=== PATIENT | male | born 1950 | race Caucasian/White ===

== ENCOUNTER 2019-04-27 23:09 | Inpatient (IN) | payer MEDICARE, OTHER ==
[~2019-04-27] VITALS: Ht 160 cm; Wt 81.8 kg
[2019-04-27] MEDS ORDERED: HYDR-4077 PO (23:49)
[2019-04-27] MEDS ORDERED: ESOM40CA PO (23:49)
[2019-04-27] MEDS ORDERED: METO-357 PO (23:49)
[2019-04-27] MEDS ORDERED: SITA100T PO (23:49)
[2019-04-27] MEDS ORDERED: QUET25TA PO (23:49)
[2019-04-27] MEDS ORDERED: ATOR80TA PO (23:49)
[2019-04-27] MEDS ORDERED: LORA0.5T PO (23:49)
[2019-04-27] MEDS ORDERED: ASPI-605 PO (23:49)
[2019-04-27] MEDS ORDERED: GLIP10TA11 PO (23:49)
[2019-04-27] MEDS ORDERED: DOXA4TAB3 PO (23:49)
[2019-04-27] MEDS ORDERED: VENL75TA4 PO (23:49)
[2019-04-28] MEDS ORDERED: IV D5/0.45 NACL 1,000 ML IV PRN (00:07)
[2019-04-28] MEDS ORDERED: ZOLPIDEM TARTRATE 5 MG TABLET PO PRN (00:30)
[2019-04-28] MEDS ORDERED: Z GUARD REMEDY 2 OZ OINT TP PRN (00:30)
[2019-04-28] MEDS ORDERED: LORAZEPAM 0.5 MG TABLET PO PRN (00:30)
[2019-04-28] MEDS ORDERED: MAG HYDROX/AL HYDROX/SIMETH 30 ML UDC PO PRN (00:30)
[2019-04-28] MEDS ORDERED: MORPHINE SULFATE INJ 2 MG/ML DISP.SYRIN IV PRN (00:30)
[2019-04-28] MEDS ORDERED: ACETAMINOPHEN 325 MG TABLET PO PRN (00:30)
[2019-04-28] MEDS ORDERED: ONDANSETRON HCL/PF 4 MG/2 ML VIAL IVP PRN (00:30)
[2019-04-28] MEDS ORDERED: HYDROCODONE/APAP 5/325MG 1 EACH TABLET PO PRN (00:30)
[2019-04-28] MEDS ORDERED: MAGNESIUM HYDROXIDE 30 ML UDC PO PRN (00:30)
--- NOTE | 2019-04-28 00:51 | NUR ---
SURGICAL GARMENT ASSEMBLY SUPERVISOR NOTES RECEIVED PT FROM EMT VIA WHEELCHAIR. ON ROOM AIR NO RESPIRATORY DISTRESS NOTED. ON MONITOR SR 62. IV ACCESS RFA AND LFA G20 PATENT AND INTACT. NOTED WITH FACIAL DROOPING, NO UPPER AND LOWER WEAKNESS NOTED. PT REFUSED SKIN CHECK. BED ALARM IS ON. BED IN LOW AND LOCKED POSITION. SIDE RAILS UP X3. CALL LIGHT WITHIN REACH. WILL MONITOR PT CLOSELY.
[2019-04-28] MEDS: BLOOD SUGAR DIAGNOSTIC 1 EACH STRIP IN SCH ×4 (00:53→14:09)
[2019-04-28] MEDS ORDERED: LORAZEPAM 0.5 MG TABLET PO SCH (01:00)
--- NOTE | 2019-04-28 02:47 | NUR ---
FAMILY DAY CARE WORKER NOTES PT COMPLAINING OF CHEST PAIN. GIVEN MORPHINE 1MG, INFORMED CLINICAL PROGRAM COORDINATOR . PER CLINICAL PROGRAM COORDINATOR DR, TROPONIN, EKG, CXR STAT. WILL MONITOR PT CLOSELY.
[2019-04-28] MEDS ORDERED: ASPIRIN 325 MG TABLET PO STA (03:08)
[2019-04-28 03:15] LABS: BASOPHILS # (AUTO) 0.1 /CMM (0.0-0.2); BASOPHILS % (AUTO) 0.8 % (0.0-2.0); EOSINOPHILS % (AUTO) 2.6 % (0.0-6.0); HEMATOCRIT 31 % (39-51); HEMOGLOBIN 10.2 g/dL (13.5-17.5); LYMPHOCYTES # (AUTO) 1.6 /CMM (0.8-4.8); LYMPHOCYTES % (AUTO) 17.6 % (20.0-44.0); MEAN CORPUSCULAR HGB CONC 33 g/dl (31.0-36.0); MEAN CORPUSCULAR VOLUME 96 fL (80-96); MONOCYTES # (AUTO) 0.8 /CMM (0.1-1.30); MONOCYTES % (AUTO) 8.7 % (2.0-12.0); NEUTROPHILS # (AUTO) 6.2 /CMM (1.8-8.9); NEUTROPHILS % (AUTO) 70.3 % (43.0-81.0); PLATELET COUNT (AUTO) 139 /CMM (150-450); RED BLOOD CELL COUNT(AUTO) 3.22 MIL/uL (4.5-6.0); WHITE BLOOD COUNT (AUTO) 8.8 K/uL (4.3-11.0)
--- NOTE | 2019-04-28 03:19 | NUR ---
SENIOR PAYROLL SPECIALIST NOTES RELAYED EKG RESULT TO JOSH DAWKINS PER AIR POLLUTION CONTROL ENGINEER ASPIRIN 325MG X 1. WILL MONITOR PT CLOSELY.
[2019-04-28 03:29] LABS: ALBUMIN 3.2 g/dL (3.4-5.0); BILIRUBIN,TOTAL 0.7 mg/dL (0.2-1.0); CALCIUM, SERUM 7.9 mg/dL (8.5-10.1); CREATININE 1.4 mg/dL (0.6-1.3); MAGNESIUM 1.4 mg/dL (1.8-2.4); PHOSPHORUS 3.4 mg/dL (2.5-4.9); POTASSIUM 4.4 mmol/L (3.5-5.1); TOTAL PROTEIN, SERUM 6.3 g/dL (6.4-8.2)
[2019-04-28 03:39] LABS: THYROID STIMULATING HORMONE 1.405 uIU/mL (0.358-3.74)
--- NOTE | 2019-04-28 03:52 | NUR ---
GLASS INSERTER NOTES PER FINANCE ADMINISTRATOR, D/C D51/2NS. BS 216MG/DL
[2019-04-28 04:00] VITALS: BP 124/74
--- NOTE | 2019-04-28 07:07 | NUR ---
BOAT OAR MAKER NOTES NO ACUTE CHANGES NOTED DURING THE SHIFT. PROVIDED COMFORT AND SAFETY. WILL ENDORSE TO THE AM NURSE FOR CONTINUITY OF CARE.
--- NOTE | 2019-04-28 07:15 | NUR ---
PHARMACY SPECIALIST NOTES PATIENT IN BED, AWAKE A/OX3. SINUS RHYTHM 63. NO SOB OR PAIN NOTED AT THIS TIME. PATIENT IS AMBULATORY WITH ASSIST, BED ALARM ON. BED AT THE LOWEST POSITION LOCKED, CALL LIGHT WITHIN REACH. PATIENT HAS LEFT FOREARM IV PATENT FLUSHED WITH NS WELL.
[2019-04-28] MEDS ORDERED: PANTOPRAZOLE 40 MG TABLET.DR PO SCH (07:30)
[2019-04-28] MEDS ORDERED: VENLAFAXINE 37.5 MG TABLET PO SCH (07:30)
[2019-04-28 08:00] VITALS: BP 122/60
[2019-04-28 08:19] VITALS: BP 122/60
[2019-04-28] MEDS ORDERED: DOXAZOSIN MESYLATE (4 MG) 4 MG TABLET PO SCH (09:00)
[2019-04-28] MEDS ORDERED: ASPIRIN EC 81 MG TABLET.DR PO SCH (09:00)
[2019-04-28] MEDS ORDERED: hydrALAZINE HCL 50 MG TABLET PO SCH (09:00)
[2019-04-28] MEDS ORDERED: METOPROLOL SUCCINATE 50 MG TAB.SR.24H PO SCH (09:00)
[2019-04-28] MEDS ORDERED: glipiZIDE 10 MG TABLET PO SCH (09:00)
[2019-04-28] MEDS ORDERED: ATORVASTATIN 40 MG TABLET PO SCH (09:00)
[2019-04-28] MEDS: Magnesium 1GM/D5W 100ML PREMIX 100 ML IV SCH ×4 (10:45→13:30)
--- NOTE | 2019-04-28 11:00 | NUR ---
OCCUPATIONAL MEDICINE OFFICER NOTES PATIENT IS AWAKE , FINISHED HIS BREAKFAST 100%. DAUGHTER AT BED SIDE. DR Mandy DELEON AWARE OF BLOOD GLUCOSE LEVEL OF 241 AT 0900.
[2019-04-28 12:17] VITALS: BP 130/61
[2019-04-28] MEDS ORDERED: MAGNESIUM OXIDE 400 MG TABLET PO ONE (15:00)
--- NOTE | 2019-04-28 15:01 | NUR ---
AGENCY LEGAL COUNSEL NOTES PT HAS REMOVED HIS IV AND LAST BAG OF IV MAGNESIUM NOT ADMINISTRATED. CALLED PHARMACY AND REQUESTED PO ROUTE FOR THE REMAINING 1 G MAGNESIUM.
[2019-04-28] MEDS ORDERED: QUETIAPINE FUMARATE 25 MG TABLET PO SCH (22:00)
== END 2019-04-28 16:44 | disposition home or self-care (01) | DRG 638 ==
LOC: TELE1 23:15
PROVIDERS: ADMIT Hospitalist; ATTEND Hospitalist
DX: E11.649 Type 2 diabetes mellitus with hypoglycemia without coma (principal); F02.81 Dementia in other diseases classified elsewhere, unspecified severity, with behavioral disturbance; T38.3X5A Adverse effect of insulin and oral hypoglycemic [antidiabetic] drugs, initial encounter; Y92.009 Unspecified place in unspecified non-institutional (private) residence as the place of occurrence of the external cause; G30.9 Alzheimer's disease, unspecified; E83.42 Hypomagnesemia; I25.10 Atherosclerotic heart disease of native coronary artery without angina pectoris; Z86.73 Personal history of transient ischemic attack (TIA), and cerebral infarction without residual deficits; F17.200 Nicotine dependence, unspecified, uncomplicated; Z95.1 Presence of aortocoronary bypass graft; Z83.3 Family history of diabetes mellitus; Z82.49 Family history of ischemic heart disease and other diseases of the circulatory system; Z79.82 Long term (current) use of aspirin; Z79.84 Long term (current) use of oral hypoglycemic drugs; Z79.899 Other long term (current) drug therapy
CPT/HCPCS: 36415; 71045-TC; 80053-TC; 80061-TC; 82962-TC; 83735-TC; 84100-TC; 84443-TC; 84484-TC; 85025-TC; 87081-TC; G0378; J2270; J3475; J3490

== ENCOUNTER 2019-08-24 14:17 | Inpatient (IN) | payer MEDICARE, OTHER ==
[~2019-08-24] VITALS: Ht 172.7 cm; Wt 106.6 kg
[~2019-08-24 14:17] MED LIST: ASPI-605 PO; ATOR80TA PO; DOXA4TAB3 PO; ESOM40CA PO; GLIP10TA11 PO; HYDR-4077 PO; LORA0.5T PO; METO-357 PO; QUET25TA PO; SITA100T PO; VENL75TA4 PO
[2019-08-24] MEDS ORDERED: DOXA8TAB2 PO (14:38)
[2019-08-24] MEDS ORDERED: ASPI-1169 PO (14:38)
[2019-08-24] MEDS ORDERED: GLIM4TAB PO (14:38)
[2019-08-24] MEDS ORDERED: ERGO500040 PO (14:45)
[2019-08-24] MEDS ORDERED: APIX5TAB4 PO (14:45)
[2019-08-24] MEDS ORDERED: APIX5TAB PO (14:45)
[2019-08-24] MEDS ORDERED: BISA-79 PO (14:45)
[2019-08-24] MEDS ORDERED: DOCU100C36 PO (14:45)
[2019-08-24] MEDS ORDERED: Calcium Gluconate 0.465 MEQ/ML VIAL IV ONE (14:46)
[2019-08-24] MEDS ORDERED: ESCI20TA PO (14:52)
[2019-08-24] MEDS ORDERED: NICO-677 TD (14:52)
[2019-08-24] MEDS ORDERED: BENA20TA9 PO (14:52)
[2019-08-24] MEDS ORDERED: FURO40TA5 PO (14:52)
[2019-08-24] MEDS ORDERED: FINA5TAB4 PO (14:52)
[2019-08-24] MEDS ORDERED: METO100T7 PO (14:52)
[2019-08-24] MEDS ORDERED: HYDR25TA4 PO (14:52)
[2019-08-24] MEDS ORDERED: NITR0.4T48 SL (14:55)
[2019-08-24] MEDS ORDERED: TYL2T PO (14:55)
[2019-08-24] MEDS ORDERED: CHOL400T11 PO (14:59)
[2019-08-24] MEDS ORDERED: IV NS 0.9% 500 ML BAG IV ONE ×2 (15:00→16:00)
[2019-08-24] MEDS ORDERED: Calcium Gluconate 1GM/10ML 4.65 MEQ in IV NS 0.9% 40 ML IV ONE ×4 (15:00)
[2019-08-24 15:02] LABS: BASOPHILS % (AUTO) 0.5 % (0.0-2.0); EOSINOPHILS % (AUTO) 1.4 % (0.0-6.0); HEMATOCRIT 26 % (39-51); HEMOGLOBIN 8.2 g/dL (13.5-17.5); LYMPHOCYTES % (AUTO) 18.7 % (20.0-44.0); MEAN CORPUSCULAR HGB CONC 32 g/dl (31.0-36.0); MEAN CORPUSCULAR VOLUME 84 fL (80-96); MONOCYTES # (AUTO) 0.6 /CMM (0.1-1.30); MONOCYTES % (AUTO) 11.4 % (2.0-12.0); NEUTROPHILS # (AUTO) 3.6 /CMM (1.8-8.9); PLATELET COUNT (AUTO) 87 /CMM (150-450); RED BLOOD CELL COUNT(AUTO) 3.06 MIL/uL (4.5-6.0); WHITE BLOOD COUNT (AUTO) 5.4 K/uL (4.3-11.0)
--- NOTE | 2019-08-24 15:07 | NUR ---
PATIENT CAME IN ASLEEP BUT AROUSABLE TO STIMULI . PATIENT IS ALTER MENTAL STATUS . PATIENT IS RESTLESS. FAMILY AT BEDSIDE TO HELP WITH PATIENT. ATTACHED CARIAC MONITOR . IV ACCESS ESTABLISH R AC 18 G
[2019-08-24 15:18] LABS: ALANINE AMINOTRANSFERASE 20 U/L (12-78); ALBUMIN 2.9 g/dL (3.4-5.0); ALKALINE PHOSPHATASE 82 U/L (46-116); ASPARTATE AMINOTRANSFERASE 16 U/L (15-37); BILIRUBIN,DIRECT 0.3 mg/dL (0.0-0.2); BILIRUBIN,TOTAL 0.5 mg/dL (0.2-1.0); CALCIUM, SERUM 8.3 mg/dL (8.5-10.1); CARBON DIOXIDE 23 mmol/L (21-32); CHLORIDE 103 mmol/L (98-107); CREATININE 4.6 mg/dL (0.6-1.3); GLUCOSE 220 mg/dL (74-106); POTASSIUM 4.2 mmol/L (3.5-5.1); SODIUM SERUM 140 mmol/L (136-145); TOTAL PROTEIN, SERUM 6.5 g/dL (6.4-8.2)
[2019-08-24 15:26] LABS: UREA NITROGEN, BLOOD 115 mg/dL (7-18)
--- NOTE | 2019-08-24 15:39 | NUR ---
per mechanical maintenance supervisor picc line will come at 2000.
--- NOTE | 2019-08-24 15:40 | NUR ---
PAGED [facility].
--- NOTE | 2019-08-24 15:52 | NUR ---
PATIENT FAMILY REFUSED MCGARRY AT THIS TIME. BRAYAN SAID MAYBE WHEN WE ARE ON THE FLOOR TO DO MCGARRY
[2019-08-24] MEDS ORDERED: VANCOMYCIN 1 GM in IV D5W 250 ML IV ONE (16:00)
[2019-08-24] MEDS ORDERED: CEFEPIME 1 GM in IV D5W 50 ML IV ONE (16:00)
[2019-08-24 16:10] LABS: APPEARANCE,URINE Cloudy (CLEAR); BILIRUBIN,URINE MODERATE (NEGATIVE); BLOOD, URINE Large Ery/uL (NEGATIVE); COLOR,URINE Yellow (YELLOW); KETONES,URINE Trace (NEGATIVE); LEUKOCYTE ESTERASE ,URINE Small (NEGATIVE); NITRITE, URINE Negative (NEGATIVE); PROTEIN,URINE >=300 mg/dl (NEGATIVE); UGLUCOSE Negative (NEGATIVE)
[2019-08-24 16:14] LABS: BAND % (MANUAL) 1 % (0.0-5.0); LYMPHOCYTES % (MANUAL) 18 % (16-48); MONOCYTES % (MANUAL) 9 % (0-11.0); NEUTROPHILS % (MANUAL) 72 (42-76)
--- NOTE | 2019-08-24 16:18 | NUR ---
NURSING SUP GAVE ALEC[facility] BED 116-2.
[2019-08-24 16:21] LABS: BACTERIA,URINE Few /HPF (None Seen); SQUAMOUS EPITHELIAL CELL,UR Rare /HPF (None Seen); URINE AMORPHOUS URATE Few /HPF (None Seen); YEAST,URINE Few /HPF (None Seen)
--- NOTE | 2019-08-24 16:32 | NUR ---
REPORT GIVEN TO ALECIA GILL RN ROOM 116- 2
--- NOTE | 2019-08-24 17:28 | NUR ---
PATIENT TRANSFER AT 1700 WITH BRIDGET PHAN PATIENT TRANSFER VIA ACLS. WITH EMT. PATIENT IS STABLE . ENDORSED TO BRIDGET PHAN
--- NOTE | 2019-08-24 17:35 | NUR ---
RN OPENING NOTES RECEIVED PATIENT FROM ER VIA GURCATRACHITA. IN NO APPARENT DISTRESS NOTED.ABLE TO RESPONSE WHEN BEING CALLED BY HIS NAME, AND TO LIGHT PAIN. IN ROOM AIR SATURATING WELL. IV ACCESS ON R AC, INTACT PATENT AND FLUSHED WELL. MCGARRY CATHETER DRAINING VIA GRAVITY WITH RUFINA, CLOUDY URINE. SKIN ASSESSMENT DONE, PICTURES TAKEN AND FILED TO HIS CHART. BELONGINGS CHECKED BY TECHNICAL ACCOUNT REPRESENTATIVE. FAMILY AT BEDSIDE WAS ABLE TO GATHER DATA FOR ADMISSION. SAFETY MEASURES APPLIED, CALL LIGHT WITHIN REACH. WILL CONTINUE TO MONITOR.
[2019-08-24] MEDS ORDERED: ONDANSETRON HCL/PF 4 MG/2 ML VIAL IVP PRN (18:00)
[2019-08-24] MEDS ORDERED: MORPHINE SULFATE INJ 2 MG/ML DISP.SYRIN IV PRN (18:00)
[2019-08-24] MEDS ORDERED: CEFEPIME 1 GM in IV D5W 50 ML IV SCH (18:00)
[2019-08-24] MEDS ORDERED: VANCOMYCIN 500 MG in IV D5W 100 ML IV ONE (18:30)
[2019-08-24] MEDS ORDERED: FEE PK DOSING 1 MIN EA MC ONE (18:39)
--- NOTE | 2019-08-24 19:25 | NUR ---
RN NOTES PATIENT JUST PULLED OUT THE IV ACCESS. IDENTIFICATION PRINTING MACHINE SETTER MADE AWARE. HAS AN ORDER FOR PICC LINE INSERTION, PER CHARGE NURSE TO WAIT FOR THE PICC LINE INSTEAD OF STARTING A NEW PERIPHERAL IV ACCESS. Addendum: 08/24/19 at 2013 by GELACIO LONDONO RN ENDORSED TO RN THE PICC LINE INSERTION.
--- NOTE | 2019-08-24 19:45 | NUR ---
RN CLOSING NOTES PATIENT IN BED, ASLEEP. IN NO APPARENT DISTRESS NOTED. KEPT CLEAN AND DR. SAFETY MEASURES APPLIED, CALL LIGHT WITHIN REACH. ENDORSED TO PM RN FOR KEKE.
[2019-08-24 20:00] VITALS: BP 118/66
[2019-08-25] VITALS: BP 98/67
[2019-08-25 04:00] VITALS: BP 94/65
[2019-08-25 06:11] LABS: BASOPHILS % (AUTO) 0.3 % (0.0-2.0); EOSINOPHILS % (AUTO) 0.8 % (0.0-6.0); HEMATOCRIT 24 % (39-51); HEMOGLOBIN 7.7 g/dL (13.5-17.5); LYMPHOCYTES # (AUTO) 0.7 /CMM (0.8-4.8); LYMPHOCYTES % (AUTO) 13.8 % (20.0-44.0); MEAN CORPUSCULAR HGB CONC 32 g/dl (31.0-36.0); MEAN CORPUSCULAR VOLUME 84 fL (80-96); MONOCYTES # (AUTO) 0.5 /CMM (0.1-1.30); NEUTROPHILS # (AUTO) 3.8 /CMM (1.8-8.9); NEUTROPHILS % (AUTO) 76.1 % (43.0-81.0); PLATELET COUNT (AUTO) 79 /CMM (150-450); RED BLOOD CELL COUNT(AUTO) 2.88 MIL/uL (4.5-6.0)
[2019-08-25 06:48] LABS: CALCIUM, SERUM 8.2 mg/dL (8.5-10.1); CREATININE 4.6 mg/dL (0.6-1.3); MAGNESIUM 2.4 mg/dL (1.8-2.4); PHOSPHORUS 7.6 mg/dL (2.5-4.9); POTASSIUM 4.5 mmol/L (3.5-5.1)
--- NOTE | 2019-08-25 07:00 | NUR ---
UNISHEAR OPERATOR-D PATIENT A/O X2 , CONFUSED BUT ABLE TO FOLLOW COMMANDS PATIENT IS AREMIAN SPEAKING. PATIENT IS RESPONSIVE TO NAME AND TOUCH. IN ROOM AIR SATURATING WELL. NO SIGNS OF SOB, NO PAIN, NO ACUTE RESPIRATORY DISTRESS. PATIENT HAS NO MCGARRY CATH IN PLACE, RN PRIOR SHIFT NOTIFIED AM SHIFT THAT PATIENT PULLED OUT MCGARRY , NOTIFIED DOC. PATIENT HAS BILATERAL RESTRAINT. ENSURE PROPER SPACING BETWEEN WRIST AND RESTRAINT. BED LOCKED AND LOWEST POSITION CALL LIGHT WITH IN REACH ALL SAFETY MEASURE IMPLEMENTED PER HOSPITAL POLICY.
--- NOTE | 2019-08-25 07:06 | NUR ---
RN NOTE WITNESSED PT PULL OUT MCGARRY CATHETER WITH BILATERAL RESTRAINTS ON. NOTED CATHETER TIP WITH SMALL AMOUNT OF BLOOD WITH CLOTS. ATTEMPTED TO INSERT NEW MCGARRY CATHETER BUT UNABLE DUE TO RESISTANCE. BLADDER ULTRASOUND DONE AND NOTED WITH OVER 500ML OF URINE RETENTION. PAGED SOLAR SALES ASSESSOR.
--- NOTE | 2019-08-25 07:15 | NUR ---
RN NOTE JOHANNA AHN BACK WITH NEW ORDERS FOR ATIVAN GIVEN. PER MD, DO NOT REINSERT MCGARRY CATHETER UNTIL FURTHER ORDERS AND TO KEEP PT COMFORTABLE. ENDORSED TO MORNING SHIFT.
[2019-08-25] MEDS ORDERED: LORAZEPAM INJ 2 MG/ML VIAL IV PRN (07:30)
[2019-08-25 08:00] VITALS: BP 84/53
--- NOTE | 2019-08-25 08:20 | NUR ---
VEHICLE MAINTENANCE TECHNICIAN- D DR. BORJA VISITED PATIENT .
--- NOTE | 2019-08-25 08:31 | NUR ---
SAW HANDLE ASSEMBLER - INTAKE/ OUTPUT TALKED TO PM NURSE ABOUT INTAKE AND OUTPUT FOR PATIENT / 100 ML/HR INTAKE - OUTPUT OF 200 ML/HR
[2019-08-25] MEDS ORDERED: VANCOMYCIN 1.25 GM in IV D5W 250 ML IV ONE (10:30)
[2019-08-25] MEDS: PANTOPRAZOLE 40 MG VIAL IV SCH (10:42)
[2019-08-25 12:00] VITALS: BP 84/53
--- NOTE | 2019-08-25 12:22 | NUR ---
INFORMED SYLVESTER KELSEY PATIENT HAS MODERATE ASCITES, AND HE NEEDS TO PLACE AN ORDER FOR PARACENTESIS
[2019-08-25 16:00] VITALS: BP_SYST 77; BP_SYST 92; BP_DIAS 37; BP_DIAS 65
[2019-08-25] MEDS ORDERED: CEFEPIME 2 GM in IV D5W 100 ML IV SCH (16:00)
--- NOTE | 2019-08-25 18:00 | NUR ---
RN MS 1 PATIENT STARTED PULLING ON GOWN AND DIAPER AND RIPPED IT OFF. PATIENT ALSO PULLING BP MACHINE BEING NON COOPERATIVE
--- NOTE | 2019-08-25 19:15 | NUR ---
TELE/RN OPENING NOTE RECEIVED PATIENT IN BED A/O X1 NO SIGNS OF DISTRESS BUT SOME AGITATION DAUGHTER AND FRIEND AT BEDSIDE. PATIENT IS ON 2L OF O2 SATURATING AT 96% WITH NO SIGNS OF ANY SOB. PATIENT HAS A KAREEM MIDLINE PATENT WITH NS RUNNING AT 70CC.HR. RESPIRATIONS ARE EVEN LUNGS ARE CLEAR. PUPILS REACTIVE TO LIGHT. SKIN COLOR WNL. SOFT RESTRAINTS ON BILATERAL WRISTS WILL MONITOR FOR CIRCULATION. ALL SAFETY PRECAUTIONS APPLIED. WILL CONTINUE TO MONITOR PATIENT THROUGHOUT SHIFT.
--- NOTE | 2019-08-25 19:29 | NUR ---
RN MS1 PATIENT A/O X1 CONFUSED AND RESTING IN BEST COMFORTABLE WITH FAMILY AT BED SIDE DAUGTHER AND SON. PATIETN IS ON 3LPM SATURATING WELL NO SIGNS OF SOB, NO PAIN , NO ACUTE RESPIRATORY DISTRESS. BED LOCKED AND LOWEST POSITION CALL LIGHTY WITH IN REACH ALL SAFETY MEASURE IMPLEMENTED PER HOSPITAL POLICY
[2019-08-25] MEDS ORDERED: DEXTROSE 50%-WATER 50 ML DISP.SYRIN IV PRN (19:30)
[2019-08-25] MEDS ORDERED: INSULIN REGULAR, HUMAN 100 UNIT/ML 3 ML VIAL SQ PRN (19:30)
[2019-08-25] MEDS: ALBUMIN 25% 25 GM in PREMIX 1 EA IV SCH ×2 (19:51→22:46)
[2019-08-25 20:00] VITALS: BP 105/52
[2019-08-25] MEDS: IV NS 0.9% 1,000 ML IV PRN (20:21)
[2019-08-25] MEDS: BLOOD SUGAR DIAGNOSTIC 1 EACH STRIP IN SCH (22:46)
[2019-08-26] VITALS (16 sets, daily range): BP systolic 70–96; BP diastolic 35–50
--- NOTE | 2019-08-26 00:15 | NUR ---
RN NOTE PAIGED DRYING EQUIPMENT OPERATOR DR. DU REGARDING PATIENT URINARY RETENTION. CHECKED WITH BLADDER SCANNER HOLDING UP TO 250CC OF URINE. AWAITING CALL FROM DR. DU
[2019-08-26] MEDS ORDERED: FINASTERIDE (5 MG) 5 MG TABLET PO ONE (01:00)
[2019-08-26] MEDS: ALBUMIN 25% 25 GM in PREMIX 1 EA IV SCH ×2 (03:51→09:04)
--- NOTE | 2019-08-26 04:45 | NUR ---
0445NP FLORIAN MADE AWARE OF LATEST BLADDER SCAN RESULT 305-310 ML WITH ORDER TO INSERT MCGARRY CATHETER FOR URINARY RETENTION. ORDER NOTED AND SYLVESTER JORDAN MADE AWARE OF ORDER.
--- NOTE | 2019-08-26 05:55 | NUR ---
0555 UNABLE TO INSERT MCGARRY CATHETER DUE TO RESISTANCE. ATTEMPTED A FEW TIMES BUT UNSUCCESSFUL. LEATHER CRAFTER FLORIAN MADE AWARE WITH NO ORDER AT THIS TIME. NO BLADDER DISTENTION NOTED. WHEN ASSESSED. PATIENT BEING CLOSELY MONITORED.
[2019-08-26 07:01] LABS: BASOPHILS % (AUTO) 0.3 % (0.0-2.0); EOSINOPHILS % (AUTO) 0.9 % (0.0-6.0); HEMATOCRIT 24 % (39-51); HEMOGLOBIN 7.5 g/dL (13.5-17.5); LYMPHOCYTES # (AUTO) 0.9 /CMM (0.8-4.8); LYMPHOCYTES % (AUTO) 21.1 % (20.0-44.0); MEAN CORPUSCULAR HGB CONC 32 g/dl (31.0-36.0); MEAN CORPUSCULAR VOLUME 83 fL (80-96); MONOCYTES # (AUTO) 0.5 /CMM (0.1-1.30); MONOCYTES % (AUTO) 12.4 % (2.0-12.0); NEUTROPHILS # (AUTO) 2.8 /CMM (1.8-8.9); NEUTROPHILS % (AUTO) 65.3 % (43.0-81.0); PLATELET COUNT (AUTO) 72 /CMM (150-450); RED BLOOD CELL COUNT(AUTO) 2.86 MIL/uL (4.5-6.0); WHITE BLOOD COUNT (AUTO) 4.3 K/uL (4.3-11.0)
[2019-08-26 07:11] LABS: ALBUMIN 3.3 g/dL (3.4-5.0); BILIRUBIN,TOTAL 0.6 mg/dL (0.2-1.0); CALCIUM, SERUM 7.8 mg/dL (8.5-10.1); CREATININE 5.2 mg/dL (0.6-1.3); MAGNESIUM 2.2 mg/dL (1.8-2.4); PHOSPHORUS 7.3 mg/dL (2.5-4.9); POTASSIUM 4.7 mmol/L (3.5-5.1); TOTAL PROTEIN, SERUM 6.5 g/dL (6.4-8.2)
--- NOTE | 2019-08-26 07:46 | NUR ---
MS RN CLOSING PATIENT IN BED WITH FACE MASK ON WITH 3L OF O2. SATURATING AT 99% WITH. PATIENT IS ANXIOUS AND CONFUSED. RESTRAINTS ON BILATERALLY WITH CIRCULATION CHECKS OFTEN. ENDORSED PATIENT TO MORNING SHIFT NURSE FOR KEKE.
[2019-08-26] MEDS: BLOOD SUGAR DIAGNOSTIC 1 EACH STRIP IN SCH ×2 (07:54→12:52)
--- NOTE | 2019-08-26 08:38 | NUR ---
CONTACTED DR LAND AND INFORMED DR QUAN IN REGARDS TO PATIENT'S BP AND PULSE BEING LOW. STAT EKG ORDERED. WILL CONTINUE TO MONITOR PATIENT.
[2019-08-26 09:01] LABS: LYMPHOCYTES % (MANUAL) 17 % (16-48); MONOCYTES % (MANUAL) 5 % (0-11.0); NEUTROPHILS % (MANUAL) 78 (42-76)
[2019-08-26] MEDS: PANTOPRAZOLE 40 MG VIAL IV SCH (09:02)
[2019-08-26] MEDS: IV NS 0.9% 1,000 ML IV PRN (09:50)
--- NOTE | 2019-08-26 11:07 | NUR ---
MEDICAL OFFICE SUPERVISOR NOTES Received Patient awake and restless at this time. A/O x 1 with episodes of confusion. Noted decreased blood pressure. MD aware. Breathing even and slightly labored on 3LPM via mask. Patient noted to be groaning and moaning. Provided comfort measures. Family at bedside. Telemonitor reading Sinus Braulio with HR 41. Bilateral soft wrist restraints in place. Skin clean and intact with cap refill <3secs. 20g PIV on Right hand clean, intact, patent and flushing well with NS infusing at 70ml/hr. Safety precautions in place. Bed locked and set to lowest position with side rails x 2 up. All needs rendered at this time. Call light within reach. Family at bedside. Will continue to monitor.
--- NOTE | 2019-08-26 12:47 | NUR ---
MARKET DEVELOPMENT EXECUTIVEBARREL TESTER NOTES Per Tori COLLIER, transfer Patient to ICU. Patient awake, restless and groggy at this time. A/O x 1 with episodes of confusion. Noted decreased blood pressure. Breathing even and slightly labored on 3LPM via mask. Patient noted to be groaning and moaning. Provided comfort measures. Family at bedside. Telemonitor reading Sinus Braulio with HR 41. Bilateral soft wrist restraints in place. Skin clean and intact with cap refill <3secs. 20g PIV on Right hand clean, intact, patent and flushing well. All belongings with Patient. Patient in stable condition. Report given to Donovan PHAN.
--- NOTE | 2019-08-26 13:30 | NUR ---
TRANSITION SOCIAL WORKER NOTES RECEIVED PATIENT TRANSFER FROM [facility] TO ICU DUE TO BRADYCARDIA , SINUS BRADYCARDIA HR OF 40BMP , AND LOW BP , ALERT TO SELF , CONFUSE , AGITATED , COMBATIVE , ON 2LPM NC SPO2 OF 95% , NO DISTRESS NOTED , RESPIRATIONS EVEN AND UNLABORED , PIV OF R HAND # 22 PATENT AND INTACT WITH NS @ 70ML/HR INFUSING WELL , ALL NEEDS ATTENDED , WILL CONTINUE TO MONITOR
--- NOTE | 2019-08-26 13:30 | NUR ---
CARTRIDGE ASSEMBLING MACHINE ADJUSTER NOTES NOTIFED MD REGARDING LOW SBP OF 80'S , HR OF SINUS BRADYCARDIA @ 40BPM , PT IS ALTERED , CONFUSED AND AGITATED , MD ORDER PICC LINE INSERTION , LEVOPHED PER PROTOCOL AND CHANGE DIET TO NPO , ORDERS CARRIED OUT
[2019-08-26] MEDS ORDERED: NOREPINEPHRINE 8 MG in IV D5W 500 ML IV PRN (14:00)
[2019-08-26] MEDS ORDERED: NOREPINEPHRINE 16 MG in IV D5W 500 ML IV PRN (14:00)
--- NOTE | 2019-08-26 14:13 | NUR ---
PICC INSERTION Oder in the chart, consent signed. Patient prepped with CHG normal sterile fashion. US used to visualize an appropriate vein suited for PICC insertion in the RUE. Lidocaine 1% used to anesthetize the site of insertion. Right basilic vein accessed with US guidance using MST tech. Guidewire placed without difficulty.Dilator was used w/o difficulty. Inner cannula/guidewire removed with good venous flow. PICC inserted with intl length=40 cms, extl length=0,secured with interlock and sterile dressing. PICC tip in CAJ per 3CG/CXR. Good blood return noted. Secured in place with interlock device. Guardiva placed and secured with sterile dressing. Patient terrance procedure well.with minimal blood loss.
--- NOTE | 2019-08-26 15:28 | NUR ---
OUT OF TOWN COLLECTION CLERK NOTES DR ROYAL AT BEDSIDE DISCUSSED PLAN OF CARE , FAMILY AGREED WITH COMFORT MEASURES , PER MD DISCONTINUE MEDICATIONS AND LABS , START PT ON MORPHINE 1MG Q1 PRN AND ATIVAN 1 MG IVP Q1 PRN , ORDERS CARRIED OUT
[2019-08-26] MEDS: LORAZEPAM INJ 2 MG/ML VIAL IV PRN (15:40)
[2019-08-26] MEDS: MORPHINE SULFATE INJ 2 MG/ML DISP.SYRIN IV PRN (16:37)
--- NOTE | 2019-08-26 18:36 | NUR ---
TERRAZZO ROLLER NOTES REPORT GIVE NO JAMA FOR CONTINUITY OF CARE , ALL QUESTIONS ANSWERED ,
--- NOTE | 2019-08-26 19:07 | NUR ---
MS/RN NOTES RECEIVED REPORT FROM ICU AND WILL ENDORSED AT TACK CUTTER FOR KEKE.
--- NOTE | 2019-08-26 19:30 | NUR ---
RN NOTES RECEIVED PATIENT RESTING COMFORTABLY, NO SIGNS AND SYMPTOMS OF ACUTE RESPIRATORY DISTRESS, NO FACIAL GRIMACING NOTED AT HIS TIME, SAFETY MEASURES IN PLACE, FAMILY MEMBERS AT BEDSIDE, DAUGHTER STEPHIE IS REQUESTING TO HAVE MORE FAMILY MEMBERS TO STAY AT BEDSIDE FOR TONIGHT THEY WANT TO SPEND TIME WITH THE PATIENT. ALL NEEDS ANTICIPATED, WILL CONTINUE TO MONITOR.
[2019-08-27 00:14] VITALS: BP 101/50
[2019-08-27] MEDS: MORPHINE SULFATE INJ 2 MG/ML DISP.SYRIN IV PRN ×5 (01:43→19:55)
[2019-08-27 04:29] VITALS: BP 101/50
--- NOTE | 2019-08-27 06:21 | NUR ---
RN NOTES ALL NEEDS ATTENDED AND MET, ABLE TO REST AND SLEPT AT INTERVALS, RESPONSIVE TO VERBAL AND TACTILE STIMULI, KEPT CLEAN DRY AND COMFORTABLE, REPOSITIONED FOR COMFORT, SAFETY MEASURES IN PLACE, ASPIRATION PRECAUTION EMPHASIZED, CALL LIGHT WITHIN EASY REACH, ON COMFORT MEASURES. NO ACUTE DISTRESS NOTED THROUGHOUT THE SHIFT. WILL ENDORSE TO AM NURSE FOR CONTINUITY OF CARE.
--- NOTE | 2019-08-27 07:41 | NUR ---
M/S RN NOTES PATIENT RESTING IN BED. PATIENT COMFORTABLE. NO RESPIRATORY DISTRESS, NO S/S OF ANY DISCOMFORT. SKIN WARM TO TOUCH, IV ACCESS SITE INTACT AND PATENT. PATIENT'S NEEDS ATTENDED, BED ON LOWEST LOCKED POSITION, WILL CONTINUE TO MONITOR.
[2019-08-27 08:00] VITALS: BP 82/28
[2019-08-27] MEDS ORDERED: VANCOMYCIN 1.25 GM in IV D5W 250 ML IV SCH (11:00)
[2019-08-27] MEDS: LORAZEPAM INJ 2 MG/ML VIAL IV PRN ×3 (11:57→21:17)
[2019-08-27 12:00] VITALS: BP 94/46
--- NOTE | 2019-08-27 12:00 | NUR ---
M/S RN NOTES PATIENT RESTLESS, PULLED OUT IV ON THE RT HAND, APPLIED PRESSURE DRESSING, WITH MINIMAL BLEEDING. PATIENT MOANING, GAVE ATIVAN AND MORPHINE ORDERED, WILL CONTINUE TO MONITOR.
--- NOTE | 2019-08-27 13:42 | NUR ---
M/S RN NOTES NOTIFIED DR. LAND THAT PATIENT IS RETAINING URINE, BLADDER SCANNER SHOWING 422ML OF URINE. ALSO INFORMED MD THAT THEY ATTEMPTED TO INSERT A MCGARRY CATH ON PATIENT YESTERDAY IN ICU BUT WAS UNSUCCESSFUL DUE TO RESISTANCE. PER DR. LAND INSERT COUDE CATH MCGARRY. WILL CARRY OUT ORDERS.
--- NOTE | 2019-08-27 14:56 | NUR ---
M/S RN NOTES FAMILY AT PATIENT'S BEDSIDE, INFORMED THEM OF HOSPICE EVAL TODAY. ALSO EXPLAINED TO DAUGHTER STEPHIE AND FAMILY THE DIFFERENCE OF COMFORT MEASURE AND HOSPICE. SPOKED TO TEA MCKEON REGARDING OF WHAT TIME HOSPICE EVAL WILL COME. PER LINDA SHE'LL TALK TO FAMILY.
[2019-08-27 16:00] VITALS: BP 77/46
[2019-08-27 16:07] LABS: PTH, INTACT 216 pg/mL (15-65)
--- NOTE | 2019-08-27 16:57 | NUR ---
M/S RN NOTES ATTEMPTED TO INSERT MCGARRY CATHETER WITH COUDE CATHETER BUT HAD RESISTANCE AND WAS NOT SUCCESSFUL WITH INSERTION. DIAPER HAD MINIMAL AMOUNT OF URINE. WILL TRY TO INSERT MCGARRY CATH AGAIN. PATIENT REMAINED COMFORTABLE AT THIS TIME.
--- NOTE | 2019-08-27 19:00 | NUR ---
M/S RN NOTES PATIENT'S FAMILY AT BEDSIDE, EXPLAINED TO DAUGHTER STEPHIE THAT MCGARRY CATH COULDN'T BE INSERTED DUE TO RESISTANCE, TOLD PATIENT'S DAUGHTER THAT PATIENT IS RETAINING URINE, GAVE HER RISKS AND BENEFITS OF PROCEDURE, PATIENT'S DAUGHTER IS REFUSING FOR PATIENT TO HAVE THE MCGARRY INSERTED. WILL ENDORSE TO ONCOMING NURSE. PATIENT IN NO RESPIRATORY DISTRESS, O2 AT 2LP VIA NASAL CANULA. PATIENT COMFORTABLE AT THIS TIME. PATIENT'S NEEDS ATTENDED, BED ON LOWEST LOCKED POSITION. WILL ENDORSE TO ONCOMING NURSE.
[2019-08-27 20:00] VITALS: BP 77/46
--- NOTE | 2019-08-27 22:43 | NUR ---
RN NOTES PATIENT @2221. FAMILY AT BEDSIDE. CALLED EXPLOSIVES MIXER OPERATOR HOSPITALIST ELSA DU @ 2229. NOTIFIED RN TAX MANAGER CPA BRIELLE THOMSON OF Pt's @2235 ELSA DU CALLED BACK @2236: INFORMED HIM OF Pt's IN 200. FAMILY SAID THEY WILL NOTIFY THEIR OWN MORTUARY ABOUT THE Pt's . WILL CALL [facility].
--- NOTE | 2019-08-27 23:01 | NUR ---
SPOKE WITH [facility] ([phone]); CASE #: [id number]
--- NOTE | 2019-08-27 23:08 | NUR ---
RN NOTES FAMILY INFORMED ME THAT THEY CONTACTED THEIR FAMILY M[facility]ARY [facility] THEY WILL COME AROUND 0000 TO HEALTH SAFETY AND ENVIRONMENT MANAGER THE BODY.
--- NOTE | 2019-08-27 23:45 | NUR ---
RN NOTES FAMILY STATED THAT THEY WISH TO LEAVE THE DENTURES SO THAT THE MORTUARY CAN HAVE THEM IF NEEDED. WILL PASS IT ALONG.
--- NOTE | 2019-08-28 | NUR ---
RN NOTES PICC LINE REMOVED FROM KAREEM. SECURED WITH GAUZE AND TAPE. WRAPPED ARM WITH SMALL WASHCLOTH TO PREVENT FURTHER BLEEDING. Pt PLACED IN BODY BAG WITH ID WRIST BANDS ON PARTH WRISTS STILL INTACT & ID BANDS PLACED ON THE Pt's TOE, OUTSIDE OF THE BODY BAG ON THE ZIPPER, AND ON THE Pt's BELONGINGS. WAITING FOR MORTUARY TO COME BOMB TECHNICIAN THE BODY.
--- NOTE | 2019-08-28 01:42 | NUR ---
RN NOTES RECEIVED CALL FROM [facility], SPOKE WITH BAO. ANSWERED HIS QUESTIONS; SAID Pt IS NOT A CANDIDATE FOR [employer], AND SAID WE CAN RELEASE THE BODY. NEW REFERRAL (DN) # GIVEN: [phone]
--- NOTE | 2019-08-28 01:50 | NUR ---
RN NOTES Pt's BODY WAS TAKEN BY MORTUARY BOAT CREW [employer]K HAND ([employer]) FROM [facility] [employer]. Pt WAS SAFELY TRANSFERRED TO [facility] BY STAFF MEMBERS. MORTUARY BOAT CREW DECK HAND [employer]ITCHC[employer] HAS LEFT THE FACILITY WITH THE Pt's BODY SAFELY SECURED TO THE [facility].
[2019-08-29 11:06] LABS: *SPE ALBUMIN 3.1 g/dL (2.9-4.4); *SPE ALPHA-1-GLOBULIN 0.3 g/dL (0.0-0.4); *SPE ALPHA-2-GLOBULIN 0.6 g/dL (0.4-1.0); *SPE BETA GLOBULIN 1.2 g/dL (0.7-1.3); *SPE M-SPIKE Not Observed g/dL (Not Observed)
== END 2019-08-28 01:46 | disposition expired | DRG 871 ==
LOC: ER 14:23 → TELE-TD 17:13 → MEDSG1 08-25 14:16 → ICU 08-26 13:14 → MEDSG2 08-26 19:36
PROVIDERS: ADMIT Nurse Practitioner Acute Care; ATTEND Internal Medicine
PROC: 02HV33Z Insertion of Infusion Device into Superior Vena Cava, Percutaneous Approach (ICD-10-PCS; 2019-08-24)
PROC: B548ZZA Ultrasonography of Superior Vena Cava, Guidance (ICD-10-PCS; 2019-08-24)
PROC: 0W9G3ZZ Drainage of Peritoneal Cavity, Percutaneous Approach (ICD-10-PCS; principal; 2019-08-25)
PROC: 05H933Z Insertion of Infusion Device into Right Brachial Vein, Percutaneous Approach (ICD-10-PCS; 2019-08-25)
DX: A41.9 Sepsis, unspecified organism (principal); E43 Unspecified severe protein-calorie malnutrition; G92 Toxic encephalopathy; N17.0 Acute kidney failure with tubular necrosis; J18.9 Pneumonia, unspecified organism; E87.2 Acidosis; N39.0 Urinary tract infection, site not specified; I13.0 Hypertensive heart and chronic kidney disease with heart failure and stage 1 through stage 4 chronic kidney disease, or unspecified chronic kidney disease; K76.6 Portal hypertension; D63.8 Anemia in other chronic diseases classified elsewhere; E78.5 Hyperlipidemia, unspecified; Z66 Do not resuscitate; E11.22 Type 2 diabetes mellitus with diabetic chronic kidney disease; Z95.1 Presence of aortocoronary bypass graft; Z86.73 Personal history of transient ischemic attack (TIA), and cerebral infarction without residual deficits; I25.10 Atherosclerotic heart disease of native coronary artery without angina pectoris; D69.6 Thrombocytopenia, unspecified; F02.80 Dementia in other diseases classified elsewhere, unspecified severity, without behavioral disturbance, psychotic disturbance, mood disturbance, and anxiety; Z51.5 Encounter for palliative care; G30.9 Alzheimer's disease, unspecified; I48.91 Unspecified atrial fibrillation; I50.9 Heart failure, unspecified; N18.9 Chronic kidney disease, unspecified; N40.0 Benign prostatic hyperplasia without lower urinary tract symptoms; F32.9 Major depressive disorder, single episode, unspecified; Z79.899 Other long term (current) drug therapy; Z79.82 Long term (current) use of aspirin; Z79.84 Long term (current) use of oral hypoglycemic drugs; B96.89 Other specified bacterial agents as the cause of diseases classified elsewhere; Y95 Nosocomial condition; K80.20 Calculus of gallbladder without cholecystitis without obstruction; K70.31 Alcoholic cirrhosis of liver with ascites; E66.9 Obesity, unspecified; Z87.891 Personal history of nicotine dependence; Z82.49 Family history of ischemic heart disease and other diseases of the circulatory system; Z79.01 Long term (current) use of anticoagulants; Z83.3 Family history of diabetes mellitus; I49.8 Other specified cardiac arrhythmias
CPT/HCPCS: 36415; 71045-TC; 76705-TC; 76942-TC; 80048-TC; 80053-TC; 80061-TC; 80076-TC; 80202-TC; 81000-TC; 82140-TC; 82550-TC; 82962-TC; 83605-TC; 83735-TC; 83880; 83970; 84100-TC; 84155; 84165; 84484-TC; 85025-TC; 85730-TC; 87040-TC; 87070-TC; 87081-TC; 87086-TC; 89051-TC; 92611-TC; 93307-TC; 97112-TC; 97530-TC; A4216; A4217; C1751; C9113; G0378; J0610; J0692; J1815; J2060; J2270; J3370; J7030; J7040; J7050; J7060; P9047